=== PATIENT | female | born 1930 | race Two or more races ===

== ENCOUNTER 2016-12-16 21:50 | Inpatient (IN) | payer MEDICARE, OTHER ==
[~2016-12-16] VITALS: Ht 154.9 cm; Wt 40.8 kg
[~2016-12-16 21:50] MED LIST: AMLODIPINE BESYL5 MG ORAL; ARICEPT10 MG ORAL; DEPAKOTE250 MG PO; LEXAPRO20 MG ORAL; LIDODERM700 M1 TOPIC; NORCO 5-325 TA1 EACH ORAL; OXYBUTYNIN CHLOR5 M2 PO; ZOLPIDEM TART12.5 MG ORAL
--- NOTE | 2016-12-16 22:26 | Emergency Room Report ---
History of Present Illness General Chief Complaint: Multiple Trauma/Fall Source: Patient, Family Member Present Illness HPI This is an 86-year-old elderly female who is wheelchair bound most of the time. She has a history dementia and incontinence or urine. Per her son, the last days she been having incontinence of his stool also. He placed her on the commode. She try to get up and fell hit her head against the wall. She presents with chief complaint of weakness and head injury. No other injury. Did not pass out. He hurt the fall. Denies any fever chills denies any nausea vomiting. No other complaint. Allergies: Coded Allergies: PENICILLINS (Verified Allergy, Unknown, 09/15/16) Patient History Past Medical History: see triage record, old chart reviewed, HTN, dementia Past Surgical History: other Pertinent Family History: none Social History: Denies: smoking Now: No Immunizations: other Reviewed Nursing Documentation: PMH: Agreed, PSxH: Agreed Nursing Documentation-PMH Hx Hypertension: Yes Hx Gastrointestinal Problems: No - HIP FX, OSTERPROSIS Review of Systems Constitutional: Reports: weakness Eye: Denies: blurred vision, eye pain ENT: Denies: ear pain, nose congestion, throat swelling Respiratory: Denies: cough, shortness of breath Cardiovascular: Denies: chest pain, palpitations Gastrointestinal: Denies: abdominal pain, diarrhea, nausea, vomiting Musculoskeletal: Denies: back pain, joint pain Skin: Denies: rash Neurological: Denies: headache, numbness Endocrine: Denies: increased thirst, increased urine Hematologic/Lymphatic: Denies: easy bruising All Other Systems: negative except mentioned in HPI Physical Exam Vital Signs Date Time Temp Pulse Resp B/P Pulse Ox O2 Delivery O2 Flow Rate FiO2 12/16/16 21:59 98.1 67 18 140/64 96 Room Air vitals normal Sp02 EP Interpretation: reviewed, normal General Appearance: no apparent distress, alert, Chronically Ill Head: normocephalic, other - Tenderness over the right parietal area. Eyes: bilateral eye EOMI, bilateral eye PERRL ENT: hearing grossly normal, normal pharynx Neck: full range of motion, supple, no meningismus Respiratory: chest non-tender, lungs clear, normal breath sounds Cardiovascular #1: regular rate, rhythm, no murmur Gastrointestinal: normal bowel sounds, non tender, no mass, no organomegaly, no bruit, non-distended Musculoskeletal: back normal Neurologic: alert Psychiatric: mood/affect normal Skin: warm/dry Medical Decision Making Diagnostic Impression: Primary Impression: Fall Qualified Codes: W19.XXXA - Unspecified fall, initial encounter Additional Impressions: Head injury Qualified Codes: S09.90XA - Unspecified injury of head, initial encounter Weakness Dehydration ER Course Patient presents with a fall secondary to weakness. Probably from mild dehydration from diarrhea. This most likely a viral illness. There is calcification on the CT scan. Per radiologist's, this is most likely calcification rather than hemorrhage. Because of her weakness will admit for hydration and further monitoring. Lab Results Impression labs unremarkable Rhythm Strip Diag. Results EP Interpretation: yes Rate: 65 Rhythm: NSR, no PVC's, no ectopy CT/MRI/US Diagnostic Results CT/MRI/US Diagnostic Results : Imaging Test Ordered: ct head Impression Read by radiologist. Hyperdensity most likely calcification. Last Vital Signs Date Time Temp Pulse Resp B/P Pulse Ox O2 Delivery O2 Flow Rate FiO2 12/16/16 21:59 98.1 67 18 140/64 96 Room Air Status: improved Disposition: ADMITTED INPATIENT Condition: Serious Referrals: CELSO ARAUZ (PCP) ANGELA CURRY M.D. Dec 16, 2016 22:26
[2016-12-16 23:13] LABS: EOSINOPHILS % (AUTO) 0.3 % (0.0-3.0); LYMPHOCYTES % (AUTO) 16.2 % (20.0-45.0); MEAN CORPUSCULAR HEMOGLOBIN 33.6 PG (27.0-31.0); MEAN CORPUSCULAR HGB CONC 33.3 G/DL (32.0-36.0); MEAN CORPUSCULAR VOLUME 101 FL (80-99); MEAN PLATELET VOLUME 5.7 FL (6.5-10.1); MONOCYTES % (AUTO) 17.4 % (1.0-10.0); NEUTROPHILS % (AUTO) 64.1 % (45.0-75.0); PLATELET COUNT 133 K/UL (150-450); RED BLOOD COUNT 4.14 M/UL (4.20-5.40); RED CELL DISTRIBUTION WIDTH 12.4 % (11.6-14.8); WHITE BLOOD COUNT 6.9 K/UL (4.8-10.8)
[2016-12-16 23:28] LABS: ALANINE AMINOTRANSFERASE 22 U/L (3-33); ALBUMIN/GLOBULIN RATIO 1.5 (1.0-2.7); ANION GAP 16 (5-15); ASPARTATE AMINO TRANSFERASE 27 U/L (5-40); CARBON DIOXIDE 26 mEQ/L (20-30); CHLORIDE 98 mEQ/L (98-107); CREATININE 0.8 mg/dL (0.5-0.9); HEMOLYSIS 13; POTASSIUM 4.1 mEQ/L (3.4-4.9); SODIUM 140 mEQ/L (135-145); TOTAL PROTEIN 5.9 g/dL (6.6-8.7)
[2016-12-16 23:29] LABS: TROPONIN I < 0.30 ng/mL (<=0.30)
[2016-12-16 23:30] LABS: APPEARANCE,URINE CLEAR; KETONES,URINE 1+ (NEGATIVE); LEUKOCYTE ESTERASE ,URINE NEGATIVE (NEGATIVE); NITRITE,URINE NEGATIVE (NEGATIVE); PH,URINE 6.5 (4.5-8.0); PROTEIN,URINE NEGATIVE (NEGATIVE); UROBILINOGEN,URINE NORMAL MG/DL (0.0-1.0)
[2016-12-16 23:35] LABS: RBC,URINE 0-2 /HPF (0 - 2); WBC,URINE 0-2 /HPF (0 - 2)
[2016-12-16 23:38] LABS: SQUAMOUS EPITHELIAL CELL,UR FEW /LPF (NONE/OCC)
[2016-12-16 23:39] LABS: BACTERIA,URINE FEW /HPF
[2016-12-17] VITALS (7 sets, daily range): BP systolic 96–148; BP diastolic 42–93
[2016-12-17] MEDS ORDERED: ESCITALOPRAM OX10 MG ORAL (01:59)
[2016-12-17] MEDS ORDERED: Norco 5mg/325mg tab ORAL PRN (06:15)
[2016-12-17] MEDS ORDERED: Mylanta II UD 30ml ORAL PRN (06:15)
[2016-12-17] MEDS ORDERED: DONEPEZIL HCL10 MG ORAL (06:53)
[2016-12-17] MEDS: Heparin 5000 units/ml inj SUBQ SCH ×2 (09:00→21:00)
[2016-12-17] MEDS: Donepezil 5mg Tab ORAL SCH ×2 (09:38→21:27)
[2016-12-17] MEDS: Oxybutynin 5mg tab ORAL SCH (09:39)
--- NOTE | 2016-12-17 16:17 | Diagnostic Imaging Report ---
Indication: FALL, head trauma Technique: sagittal T1 fast spin echo, axial T1 FLAIR PROPELLER, axial T2 FLAIR PROPELLER, axial T2 FS PROPELLER, axial T2* GRE, axial diffusion weighted images. ADC and exponential ADC maps generated Comparison: CT scan Findings: . No abnormal areas of restricted diffusion to suggest acute infarction. No acute hemorrhage or edema. Specifically, in the bilateral frontal regions, no signal abnormality on either the GRE or T2 FLAIR images to suggest hemorrhage. There are several small punctate foci of susceptibility artifact scattered within the cerebellum, and one within the left occipital lobe, without CT correlate, consistent with old microhemorrhages. No mass effect nor midline shift. There is age-related enlargement of the ventricles and extra axial CSF spaces. There is extensive periventricular deep white matter chronic ischemic change. Bilateral basal ganglia areas of susceptibility artifact are consistent with physiologic basal ganglia calcifications demonstrated on recent CT.. Visualized orbits and sinuses are unremarkable. Vascular flow voids are preserved Impression: No MRI abnormality seen to correspond to be hypoattenuating foci in the bilateral frontal deep white matter described on recent CT scan. CT findings therefore most likely represent calcifications rather than hemorrhage However, incidentally noted are multiple foci of susceptibility artifact within the cerebellum and left occipital lobe, consistent with old microhemorrhages. Multiplicity suggests possibility of amyloid angiopathy or hypertensive angiopathy Negative for acute intracranial bleed, mass effect, or infarct Other chronic and age-related changes, as described
[2016-12-17] MEDS ORDERED: Zolpidem 5mg tab ORAL PRN (21:00)
--- NOTE | 2016-12-17 22:17 | History and Physical Report ---
DATE OF ADMISSION: 12/17/2016 REASON FOR ADMISSION: Status post fall. HISTORY OF PRESENT ILLNESS: This is an 86-year-old female with significant dementia, confusion, and unstable gait. The patient is mostly wheelchair bound. The patient also with history of incontinence over the past few days. The patient has been increasingly incontinent of bowel and bladder. The patient apparently was placed on the commode, is trying to get up and fell and hit her head. She presented with weakness and headache. The patient did have a head CT. The patient had no syncopal episode. No loss of consciousness. The patient without any clear pains and aches. The patient is a poor historian at this time. PAST MEDICAL HISTORY: Notable for prior history of hip replacement, hypertension, dementia, failure to thrive, arthritis, poor hearing, and COPD. MEDICATIONS: Reviewed. ALLERGIES: Reviewed. SOCIAL HISTORY: The patient lives with her son. Nonsmoker and nondrinker. FAMILY HISTORY: Not available. REVIEW OF SYSTEMS: Difficult to obtain. The patient has been becoming increasingly weak, debilitated, and more and more confused, and more and more incontinent. PHYSICAL EXAMINATION: GENERAL: Well-developed female, frail. VITAL SIGNS: Blood pressure 113/67, pulse 56, temperature 97.9 degrees, respirations 20, and saturation 95%. HEENT: Fairly negative. Extraocular movements are grossly intact. Pupils are equal. NECK: Supple. No adenopathy. LUNGS: Otherwise clear. No rhonchi or wheezes. CARDIAC: S1 and S2. Regular rate and rhythm. Soft systolic murmur at the parasternal border. No rubs or gallops. ABDOMEN: Soft, nontender, and nondistended. EXTREMITIES: No cyanosis or clubbing. There is no edema. Degenerative joint disease. Reduced range of motion. NEUROLOGIC: Overall confusion. LABORATORY AND DIAGNOSTIC DATA: Laboratory data reviewed, white count 6.9, hematocrit 41, and platelets are 133,000. Chemistry is fairly negative. BUN 28 and creatinine is 0.8. Liver enzymes are normal. Head CT reportedly negative for any acute changes. IMPRESSION: 1. Status post fall. 2. Head injury. 3. Evidence of acute renal failure. 4. Anemia. 5. History of chronic obstructive pulmonary disease. 6. History of dementia end stage. 7. Incontinence of bowel and bladder. RECOMMENDATIONS: Admit. Resume home medications. Discussed with son as to short-term rehabilitation if needed. Monitor clinically and recommend DVT prophylaxis with heparin. IV hydration with noted elevated BUN and stabilize further and transition to home and/or rehabilitation soon. José Miguel Rodriguez M.D. DR: Charlene JOB#: [id number] CC: DEBBIE
[2016-12-18] VITALS: BP 134/83
[2016-12-18 04:00] VITALS: BP 130/65
[2016-12-18 08:00] VITALS: BP 144/99
[2016-12-18] MEDS ORDERED: Albuterol ud Inhalation HHN PRN (08:30)
[2016-12-18] MEDS: Heparin 5000 units/ml inj SUBQ SCH ×2 (09:00→20:55)
[2016-12-18] MEDS ORDERED: cefTRIAXone 1 GM in D5W 55 ML IVPB SCH (09:15)
[2016-12-18] MEDS: Oxybutynin 5mg tab ORAL SCH (09:33)
[2016-12-18] MEDS: Donepezil 5mg Tab ORAL SCH ×2 (09:34→20:54)
[2016-12-18 09:47] LABS: BASOPHILS % (AUTO) 1.9 % (0.0-2.0); EOSINOPHILS % (AUTO) 0.6 % (0.0-3.0); LYMPHOCYTES % (AUTO) 14.5 % (20.0-45.0); MEAN CORPUSCULAR HEMOGLOBIN 34.5 PG (27.0-31.0); MEAN CORPUSCULAR HGB CONC 35.2 G/DL (32.0-36.0); MEAN CORPUSCULAR VOLUME 98 FL (80-99); MEAN PLATELET VOLUME 7.4 FL (6.5-10.1); MONOCYTES % (AUTO) 13.8 % (1.0-10.0); NEUTROPHILS % (AUTO) 69.2 % (45.0-75.0); PLATELET COUNT 138 K/UL (150-450); RED BLOOD COUNT 4.49 M/UL (4.20-5.40); RED CELL DISTRIBUTION WIDTH 12.4 % (11.6-14.8); WHITE BLOOD COUNT 9.3 K/UL (4.8-10.8)
[2016-12-18 10:11] LABS: ANION GAP 16 (5-15); CALCIUM 9.1 mg/dL (8.6-10.2); CARBON DIOXIDE 23 mEQ/L (20-30); CHLORIDE 99 mEQ/L (98-107); CREATININE 0.6 mg/dL (0.5-0.9); HEMOLYSIS 9; POTASSIUM 3.5 mEQ/L (3.4-4.9); SODIUM 138 mEQ/L (135-145)
[2016-12-18 12:00] VITALS: BP 129/75
[2016-12-18] MEDS ORDERED: Levofloxacin 500mg tab ORAL ONE (13:00)
[2016-12-18] MEDS ORDERED: Vancomycin 750mg/D5W 275ml IVPB ONE ×2 (14:00)
[2016-12-18 16:00] VITALS: BP 113/96
[2016-12-18 19:00] VITALS: BP 128/71
--- NOTE | 2016-12-18 19:37 | Consultation ---
DATE OF CONSULTATION: 12/18/2016 INFECTIOUS DISEASES CONSULTATION REFERRING PHYSICIAN: José Miguel Rodriguez M.D. REASON FOR CONSULTATION: Pneumonia. HISTORY OF PRESENTING ILLNESS: This is an 86-year-old lady with history of dementia, hypertension, and chronic obstructive pulmonary disease, who came in with incontinence of bowel and bladder. There is a concern for pneumonia and an Infectious Diseases consultation has been obtained for antibiotics. PAST MEDICAL HISTORY: 1. History of hip replacement. 2. Hypertension. 3. Dementia. 4. Chronic obstructive pulmonary disease. MEDICATIONS: As an inpatient, the patient is on IV vancomycin, Levaquin, lidocaine patch, albuterol, Ambien, subcutaneous heparin, Protonix, amlodipine, Depakote, Aricept, Lexapro, oxybutynin, Mylanta, Tylenol and [place]. ALLERGIES: The patient is allergic to penicillin. SOCIAL HISTORY: She does not smoke, drink, or use drugs. FAMILY HISTORY: Unknown. REVIEW OF SYSTEMS: Unable to obtain currently. PHYSICAL EXAMINATION: VITAL SIGNS: Temperature of 97.2 degrees, T-max of 99.1, pulse of 65, respiratory 24, blood pressure 144/99, and O2 saturation of 100%. HEENT: Pupils are equally reactive to light and accommodation. Mouth appears clean without thrush. NECK: Supple. No adenopathy. No JVD. CARDIOVASCULAR: Regular rate and rhythm. No murmurs. LUNGS: Clear to auscultation bilaterally. No crackles. No wheezes. ABDOMEN: Soft and nontender. No organomegaly. EXTREMITIES: No cyanosis, no clubbing, no edema. LABORATORY AND DIAGNOSTIC DATA: White count 9.3, hemoglobin 15.5, hematocrit 43.9, MCV 98, and platelet count of 138. Sodium 138, potassium 3.5, chloride 99, bicarbonate 23, BUN 12, creatinine 0.6, glucose 97, and calcium 9.1. On 12/16/2016, total bilirubin 0.3, AST 27, ALT 22, and alkaline phosphatase 67. Troponin is less than 0.3. Total protein is 5.9. Albumin is 3.6. UA showing 0 to 2 white cells. MRI of the brain showing no abnormality calcifications noted. ASSESSMENT: 1. This is an 86-year-old lady with history of dementia and chronic obstructive pulmonary disease, who comes in with possible community-acquired pneumonia versus atypical pneumonia. 2. Hypertension. 3. Chronic obstructive pulmonary disease. PLAN: 1. Continue vancomycin and Levaquin given of penicillin allergy. 2. We will order sputum for Gram stain and culture. 3. We will follow up cultures and adjust antibiotics accordingly. I would like to thank, Dr. Rodriguez, for this consultation. Rachel Hernández M.D. DR: TEJAS JOB#: [id number] CC: José Miguel Rodriguez M.D.; Fax#: [phone]
[2016-12-18] MEDS ORDERED: 1/2 NS 1000ml IV ONE (19:43)
[2016-12-18] MEDS ORDERED: Tubing IV Secondary IV ONE (19:43)
--- NOTE | 2016-12-18 20:22 | General Progress Note ---
Assessment/Plan Assessment/Plan IMPRESSION: 1. Status post fall. 2. Head injury. 3. Evidence of acute renal failure. 4. Anemia. 5. History of chronic obstructive pulmonary disease. 6. History of dementia end stage. 7. Incontinence of bowel and bladder. 8. Congestion 9. COPD PLAN antibiotics respiratory care oxygen chest xr MRI noted update family not ready for discharge impression, plan, and exam edited and reviewed in detail care discussed with RN Subjective Allergies: Coded Allergies: PENICILLINS (Verified Allergy, Unknown, 09/15/16) Subjective more congested difficulty in mobilizing secretions Objective Last 24 Hour Vital Signs Date Time Temp Pulse Resp B/P Pulse Ox O2 Delivery O2 Flow Rate FiO2 12/18/16 20:01 64 18 Nasal Cannula 2.0 28 12/18/16 16:00 97.9 69 20 113/96 95 Room Air 12/18/16 12:00 97.7 68 18 129/75 95 Nasal Cannula 2.0 12/18/16 09:33 65 144/99 12/18/16 08:53 65 24 100 Nasal Cannula 2.0 28 12/18/16 08:50 65 24 Nasal Cannula 2.0 28 12/18/16 08:46 63 24 95 Nasal Cannula 2.0 28 12/18/16 08:00 97.2 60 18 144/99 95 Nasal Cannula 2.0 12/18/16 04:00 97.0 64 20 130/65 91 Nasal Cannula 2.0 12/18/16 00:00 98.8 75 20 134/83 89 Room Air Intake and Output 12/17/16 12/18/16 19:00 07:00 Intake Total 740 ml 1350 ml Balance 740 ml 1350 ml Intake Oral 240 ml 480 ml IV Total 500 ml 870 ml # Voids 2 7 # Bowel Movements 4 Laboratory Tests 12/18/16 09:05: White Blood Count 9.3, Red Blood Count 4.49, Hemoglobin 15.5, Hematocrit 43.9, Mean Corpuscular Volume 98, Mean Corpuscular Hemoglobin 34.5H, Mean Corpuscular Hemoglobin Concent 35.2, Red Cell Distribution Width 12.4, Platelet Count 138L, Mean Platelet Volume 7.4, Neutrophils (%) (Auto) 69.2, Lymphocytes (%) (Auto) 14.5L, Monocytes (%) (Auto) 13.8H, Eosinophils (%) (Auto) 0.6, Basophils (%) ( Auto) 1.9, Sodium Level 138, Potassium Level 3.5, Chloride Level 99, Carbon Dioxide Level 23, Anion Gap 16H, Blood Urea Nitrogen 12, Creatinine 0.6, Estimat Glomerular Filtration Rate , Glucose Level 97, Calcium Level 9.1 Height (Feet): 5 Height (Inches): 1.00 Weight (Pounds): 90 Objective GENERAL: Well-developed female, frail. congested HEENT: Fairly negative. Extraocular movements are grossly intact. Pupils are equal. NECK: Supple. No adenopathy. LUNGS: rhonchi bilaterally; moderate air entry CARDIAC: S1 and S2. Regular rate and rhythm. Soft systolic murmur at the parasternal border. No rubs or gallops. ABDOMEN: Soft, nontender, and nondistended. EXTREMITIES: No cyanosis or clubbing. There is no edema. Degenerative joint disease. Reduced range of motion. NEUROLOGIC: Overall confusion. nonfocal and weak CELSO ARAUZ Dec 18, 2016 20:21
[2016-12-19] VITALS: BP 128/85
[2016-12-19 04:00] VITALS: BP 142/70
[2016-12-19 08:15] VITALS: BP 137/59
[2016-12-19] MEDS: Heparin 5000 units/ml inj SUBQ SCH (09:00)
[2016-12-19] MEDS: Oxybutynin 5mg tab ORAL SCH (09:09)
[2016-12-19] MEDS: Donepezil 5mg Tab ORAL SCH (09:09)
--- NOTE | 2016-12-19 09:27 | Diagnostic Imaging Report ---
Indication: COUGH Technique: One view of the chest Comparison: 09/15/2016 Findings: There is some atelectasis and pleural fluid at the left lung base. Lungs and pleural spaces are otherwise clear. The heart is mildly enlarged. Aorta is tortuous and calcified. There is evidence of prior midthoracic vertebral body augmentation procedure Impression: Left basilar atelectasis and possibly some pleural fluid Other findings as noted
[2016-12-19 11:43] VITALS: BP 130/70
--- NOTE | 2016-12-19 12:16 | Infectious Diseases Prog Note ---
Assessment/Plan Assessment/Plan A: C.difficile colitis COPD/Pneumonia Penicillin allergy s/p fall Dementia P: Continue Levaquin, Vancomycin & Flagyl Subjective ROS Limited/Unobtainable: Yes Gastrointestinal/Abdominal: Reports: diarrhea Allergies: Coded Allergies: PENICILLINS (Verified Allergy, Unknown, 09/15/16) Objective Vital Signs Last 24 Hour Vital Signs Date Time Temp Pulse Resp B/P Pulse Ox O2 Delivery O2 Flow Rate FiO2 12/19/16 11:43 96.4 61 18 130/70 96 Nasal Cannula 2.0 12/19/16 09:09 65 137/59 12/19/16 08:15 97.5 65 18 137/59 94 Nasal Cannula 2.0 12/19/16 07:50 67 20 Nasal Cannula 2.0 28 12/19/16 04:00 97.5 51 20 142/70 91 Nasal Cannula 2.0 12/19/16 00:00 98.1 63 20 128/85 93 Nasal Cannula 2.0 12/18/16 20:01 64 18 Nasal Cannula 2.0 28 12/18/16 19:00 97.3 68 18 128/71 Nasal Cannula 2.0 12/18/16 16:00 97.9 69 20 113/96 95 Room Air Height (Feet): 5 Height (Inches): 1.00 Weight (Pounds): 90 General Appearance: no acute distress HEENT: mucous membranes moist Respiratory/Chest: lungs clear Cardiovascular: normal rate Abdomen: normal bowel sounds, soft, non tender Extremities: no edema Neurologic/Psychiatric: alert, responsive Microbiology Date/Time Source Procedure Growth Status 12/17/16 14:44 Stool Clostridium difficile Toxin Assay - Final Complete Current Medications Medications (Trade) Dose Ordered Sig/Odell Route PRN Reason Start Time Stop Time Status Last Admin Dose Admin Acetaminophen (Tylenol) 650 mg Q4H PRN ORAL Mild Pain/Temp > 100.5 12/17/16 06:15 01/16/17 06:14 Acetaminophen/ Hydrocodone Bitart ([place] 5/325) 1 tab Q4H PRN ORAL Moderate Pain (Pain Scale 4-6) 12/17/16 06:15 12/24/16 06:14 12/18/16 09:49 Al Hydroxide/Mg Hydroxide (Mylanta II) 30 ml Q4H PRN ORAL Constipation 12/17/16 06:15 01/16/17 06:14 Albuterol Sulfate (Proventil) 2.5 mg Q4H PRN HHN Shortness of Breath 12/18/16 08:30 12/23/16 08:29 12/18/16 08:46 Amlodipine Besylate (Norvasc) 5 mg DAILY ORAL 12/17/16 09:00 01/16/17 08:59 12/19/16 09:09 Divalproex Sodium (Depakote) 250 mg TID ORAL 12/17/16 09:00 01/16/17 08:59 12/19/16 09:10 Donepezil HCl (Aricept) 5 mg Q12HR ORAL 12/17/16 09:00 01/16/17 08:59 12/19/16 09:09 Escitalopram Oxalate (Lexapro) 10 mg DAILY ORAL 12/17/16 09:00 01/16/17 08:59 12/19/16 09:09 Heparin Sodium (Porcine) (Heparin 5000 units/ml) 5,000 units EVERY 12 HOURS SUBQ 12/17/16 09:00 01/16/17 08:59 Levofloxacin (Levaquin) 250 mg DAILY ORAL 12/19/16 09:00 12/24/16 09:01 12/19/16 09:10 Lidocaine (Lidoderm 5% PATCH) 1 patch DAILY TDERMAL 12/18/16 12:00 01/17/17 11:59 12/19/16 09:15 Metronidazole (Flagyl) 500 mg Q8HR ORAL 12/19/16 14:00 12/26/16 13:59 Oxybutynin Chloride 5 mg 5 mg DAILY ORAL 12/17/16 09:00 01/16/17 08:59 12/19/16 09:09 Pantoprazole (Protonix) 40 mg DAILY ORAL 12/17/16 09:00 01/16/17 08:59 12/19/16 09:09 Sodium Chloride (0.45% NS 1000ml) 1,000 ml @ 100 mls/hr Q10H IV 12/17/16 09:30 01/16/17 09:29 12/19/16 06:49 Vancomycin HCl 1 ea 1 ea DAILY PRN MISC Per rx protocol 12/18/16 09:15 01/17/17 09:14 Vancomycin HCl/ Dextrose (Vancomycin/D5W) 110 ml @ 110 mls/hr Q24H IVPB 12/19/16 14:00 12/24/16 13:59 Zolpidem Tartrate (Ambien) 5 mg HSPRN PRN ORAL Insomnia 12/17/16 21:00 01/16/17 20:59 YARI MORROW Dec 19, 2016 12:16
--- NOTE | 2016-12-19 12:38 | General Progress Note ---
Assessment/Plan Assessment/Plan IMPRESSION: 1. Status post fall. 2. Head injury. 3. Evidence of acute renal failure. 4. Anemia. 5. History of chronic obstructive pulmonary disease. 6. History of dementia end stage. 7. Incontinence of bowel and bladder. 8. Congestion but no pneumonia 9. COPD 10. C dif PLAN antibiotics PO on discharge add flagyl isolation discussed with family swallow concerns discussed respiratory care check swallow evaluation oxygen chest xr noted MRI noted and discussed update family and discuss dc planning son is primary caregiver and will care for her at home impression, plan, and exam edited and reviewed in detail care discussed with RN Subjective Allergies: Coded Allergies: PENICILLINS (Verified Allergy, Unknown, 09/15/16) Subjective LESS congested reduced secretions Objective Last 24 Hour Vital Signs Date Time Temp Pulse Resp B/P Pulse Ox O2 Delivery O2 Flow Rate FiO2 12/19/16 11:43 96.4 61 18 130/70 96 Nasal Cannula 2.0 12/19/16 09:09 65 137/59 12/19/16 08:15 97.5 65 18 137/59 94 Nasal Cannula 2.0 12/19/16 07:50 67 20 Nasal Cannula 2.0 28 12/19/16 04:00 97.5 51 20 142/70 91 Nasal Cannula 2.0 12/19/16 00:00 98.1 63 20 128/85 93 Nasal Cannula 2.0 12/18/16 20:01 64 18 Nasal Cannula 2.0 28 12/18/16 19:00 97.3 68 18 128/71 Nasal Cannula 2.0 12/18/16 16:00 97.9 69 20 113/96 95 Room Air Intake and Output 12/18/16 12/19/16 19:00 07:00 Intake Total 700 ml 1040 ml Balance 700 ml 1040 ml Intake Oral 240 ml IV Total 700 ml 800 ml # Voids 1 6 Labs Test 12/16/16 22:57 12/16/16 23:10 12/18/16 09:05 White Blood Count 6.9 K/UL (4.8-10.8) 9.3 K/UL (4.8-10.8) Red Blood Count 4.14 M/UL (4.20-5.40) 4.49 M/UL (4.20-5.40) Hemoglobin 13.9 G/DL (12.0-16.0) 15.5 G/DL (12.0-16.0) Hematocrit 41.7 % (37.0-47.0) 43.9 % (37.0-47.0) Mean Corpuscular Volume 101 FL (80-99) 98 FL (80-99) Mean Corpuscular Hemoglobin 33.6 PG (27.0-31.0) 34.5 PG (27.0-31.0) Mean Corpuscular Hemoglobin Concent 33.3 G/DL (32.0-36.0) 35.2 G/DL (32.0-36.0) Red Cell Distribution Width 12.4 % (11.6-14.8) 12.4 % (11.6-14.8) Platelet Count 133 K/UL (150-450) 138 K/UL (150-450) Mean Platelet Volume 5.7 FL (6.5-10.1) 7.4 FL (6.5-10.1) Neutrophils (%) (Auto) 64.1 % (45.0-75.0) 69.2 % (45.0-75.0) Lymphocytes (%) (Auto) 16.2 % (20.0-45.0) 14.5 % (20.0-45.0) Monocytes (%) (Auto) 17.4 % (1.0-10.0) 13.8 % (1.0-10.0) Eosinophils (%) (Auto) 0.3 % (0.0-3.0) 0.6 % (0.0-3.0) Basophils (%) (Auto) 2.0 % (0.0-2.0) 1.9 % (0.0-2.0) Sodium Level 140 mEQ/L (135-145) 138 mEQ/L (135-145) Potassium Level 4.1 mEQ/L (3.4-4.9) 3.5 mEQ/L (3.4-4.9) Chloride Level 98 mEQ/L (98-107) 99 mEQ/L (98-107) Carbon Dioxide Level 26 mEQ/L (20-30) 23 mEQ/L (20-30) Anion Gap 16 (5-15) 16 (5-15) Blood Urea Nitrogen 28 mg/dL (7-23) 12 mg/dL (7-23) Creatinine 0.8 mg/dL (0.5-0.9) 0.6 mg/dL (0.5-0.9) Estimat Glomerular Filtration Rate mL/min (>60) mL/min (>60) Glucose Level 98 mg/dL (74-106) 97 mg/dL (74-106) Calcium Level 9.0 mg/dL (8.6-10.2) 9.1 mg/dL (8.6-10.2) Total Bilirubin 0.3 mg/dL (0.0-1.2) Aspartate Amino Transf (AST/SGOT) 27 U/L (5-40) Alanine Aminotransferase (ALT/SGPT) 22 U/L (3-33) Alkaline Phosphatase 67 U/L (35-104) Troponin I < 0.30 ng/mL (<=0.30) Total Protein 5.9 g/dL (6.6-8.7) Albumin 3.6 g/dL (3.5-5.2) Globulin 2.3 g/dL Albumin/Globulin Ratio 1.5 (1.0-2.7) Urine Color Yellow Urine Appearance Clear Urine pH 6.5 (4.5-8.0) Urine Specific [place] 1.015 (1.005-1.035) Urine Protein Negative (NEGATIVE) Urine Glucose (UA) Negative (NEGATIVE) Urine Ketones 1+ (NEGATIVE) Urine Occult Blood 3+ (NEGATIVE) Urine Nitrite Negative (NEGATIVE) Urine Bilirubin Negative (NEGATIVE) Urine Urobilinogen Normal MG/DL (0.0-1.0) Urine Leukocyte Esterase Negative (NEGATIVE) Urine RBC 0-2 /HPF (0 - 2) Urine WBC 0-2 /HPF (0 - 2) Urine Squamous Epithelial Cells Few /LPF (NONE/OCC) Urine Bacteria Few /HPF (NONE) Height (Feet): 5 Height (Inches): 1.00 Weight (Pounds): 90 Objective GENERAL: Well-developed female, frail. congested HEENT: Fairly negative. Extraocular movements are grossly intact. Pupils are equal. NECK: Supple. No adenopathy. LUNGS: rhonchi bilaterally improved; moderate air entry CARDIAC: S1 and S2. Regular rate and rhythm. Soft systolic murmur at the parasternal border. No rubs or gallops. ABDOMEN: Soft, nontender, and nondistended. EXTREMITIES: No cyanosis or clubbing. There is no edema. Degenerative joint disease. Reduced range of motion. NEUROLOGIC: Overall confusion. nonfocal and weak reviewed and edited CELSO ARAUZ Dec 19, 2016 12:38
[2016-12-19] MEDS ORDERED: metroNIDAZOLE 500mg tab ORAL SCH (14:00)
[2016-12-19] MEDS ORDERED: Vancomycin 500mg/D5W 110ml IVPB SCH ×2 (14:00)
[2016-12-19] MEDS ORDERED: LEVAQUIN500 MG ORAL (15:25)
[2016-12-19] MEDS ORDERED: METRONIDAZOLE500 MG ORAL (15:26)
[2016-12-19 15:34] VITALS: BP 122/63
[2016-12-19] MEDS ORDERED: 1/2 NS 1000ml IV ONE (15:59)
--- NOTE | 2016-12-20 12:59 | Diagnostic Imaging Report ---
Indications: Pain status post fall Technique: Spiral acquisitions obtained through the brain. Angled axial and coronal 5 x 5 mm slices were reconstructed. Total dose length product 1389 mGycm. CTDI vol(s) mGy Comparison: Findings: The calvarium is intact. The extracranial soft tissues are unremarkable. There is marked age-related enlargement of the ventricles and extra axial CSF spaces and considerable periventricular the white matter chronic ischemic change. Bilateral hyperattenuating foci are seen within the bilateral frontal deep and right posterior parietal white matter, most likely dystrophic calcifications, but small hemorrhages are not completely excludable. There is dense physiologic bilateral basal ganglia calcification. There is minimal left ethmoid sinus disease. Impression: Bilateral frontal and right posterior parietal the white matter densities, most likely a dystrophic calcifications but could represent tiny hemorrhages. MRI may be useful for better characterization if clinically indicated Chronic and age-related changes, as described No acute mass effect This agrees with the preliminary interpretation provided overnight by [facility] teleradiology service. The CT scanner at [facility] is accredited by the [employer] and the scans are performed using protocols designed to limit radiation exposure to as low as reasonably achievable to attain images of sufficient resolution adequate for diagnostic evaluation.
--- NOTE | 2016-12-20 13:59 | Discharge Summary ---
Discharge Summary Hospital Course Date of Admission Dec 17, 2016 at 01:09 Date of Discharge Dec 19, 2016 at 16:00 Admitting Diagnosis weakness, head injury HPI Shanita Hilton is a 86 year old female who was admitted on Dec 17, 2016 at 01:09 for Weakness, Head Injury Hospital Course [id number] Discharge Discharge Disposition Patient was discharged to Home with Home Health(06) Discharge Diagnoses: Ute Matthews NP Dec 20, 2016 13:59
--- NOTE | 2016-12-21 00:18 | Discharge Summary 2 SIG ---
DATE OF ADMISSION: 12/17/2016 DATE OF DISCHARGE: 12/19/2016 ASSISTANT CLINICAL DIRECTOR: Rachel Hernández M.D. BRIEF HOSPITAL COURSE: The patient is an 86-year-old female with significant dementia, confusion, and unstable gait, mostly wheelchair bound. She has history of incontinence for the past few days and has been increasingly incontinent of bowel and bladder. Apparently, she was placed on a commode and is trying to get up and fell and hit her head. She presented with weakness and headache. Head CT done at ED showed bilateral frontal and right posterior parietal white matter density. An MRI of the brain was done and confirmed CT findings of hypoattenuating foci on bilateral frontal deep white matter, represent calcifications rather than hemorrhage. Negative for acute intracranial bleed, mass effect, or infarct. Dr. Hernández was consulted for pneumonia with chest x-ray findings of left basilar atelectasis. She was given Levaquin and vancomycin. Stool C. difficile was positive and was given Flagyl. She was eventually discharged home with home health. FINAL DIAGNOSES: 1. Status post fall. 2. Evidence of acute renal failure. 3. Head injury. 4. Anemia. 5. Chronic obstructive pulmonary disease. 6. Dementia. 7. Clostridium difficile colitis. 8. Bladder and bowel incontinence. 9. Congestion. José Miguel Rodriguez M.D. I have been assigned to dictate discharge summary on this account and I was not involved in the patient's management. Ute Matthews N.P. DR: FARHANA JOB#: [id number] CC:
--- NOTE | 2017-01-08 14:10 | Diagnostic Imaging Report ---
Indications: Dysphagia Technique: Multiphasic barium dysphagia study was performed under fluoroscopic control with Trish Donaldson speech pathologist. Cinegraphic images were obtained. Total fluoroscopy time: 287.9 sec Dose-area product: 0.29 mGy-m2 Findings: Comparison: None Oral and pharyngeal phases of swallowing demonstrate multiple mechanical abnormalities, as enumerated on speech pathology evaluation form. The patient demonstrates laryngeal penetration of thin liquid barium, injected, without aspiration. No penetration or aspiration of any thicker consistency of barium tested. There is moderate barium coating of pharyngeal structures after swallowing.. Esophageal phase of swallowing demonstrates barium pooling with retrograde propagation through the pharyngeal esophageal segment. IMPRESSION: Abnormal oropharyngeal mechanics with laryngeal penetration of thin liquid barium only, no aspiration Moderate post swallow pharyngeal residue Esophageal dysmotility with reversed peristalsis as described. Recommendation per speech pathology evaluation form.
== END 2016-12-19 16:00 | disposition home health service (06) | DRG 914 ==
LOC: ENRESERVTM → ENRESERVDT → ENRESERV → EMR 22:15 → OBSVTOIN 12-17 01:09 → 4E 12-17 01:09 → INTOOBSV 12-17 01:09 → EDBEDREQ 12-17 01:31 → 4E 12-19 11:59
DX: S09.90XA Unspecified injury of head, initial encounter (principal); N17.9 Acute kidney failure, unspecified; A04.7 Enterocolitis due to Clostridium difficile; F03.90 Unspecified dementia, unspecified severity, without behavioral disturbance, psychotic disturbance, mood disturbance, and anxiety; J98.11 Atelectasis; D64.9 Anemia, unspecified; J44.9 Chronic obstructive pulmonary disease, unspecified; Z99.3 Dependence on wheelchair; M81.0 Age-related osteoporosis without current pathological fracture; Z96.649 Presence of unspecified artificial hip joint; R15.9 Full incontinence of feces; R32 Unspecified urinary incontinence; I10 Essential (primary) hypertension; W18.12XA Fall from or off toilet with subsequent striking against object, initial encounter; Z91.81 History of falling; Y92.012 Bathroom of single-family (private) house as the place of occurrence of the external cause; Y99.8 Other external cause status; Z88.0 Allergy status to penicillin
CPT/HCPCS: 36415; 70450; 70551; 71010; 74230; 80048; 80053; 81001; 84484; 85025; 87070; 87205; 87493; 94640; 94664